=== PATIENT | female | born 1970 | race Caucasian/White ===

== ENCOUNTER 2017-07-27 16:03 | Inpatient (IN) | payer MEDICAID, OTHER ==
[~2017-07-27] VITALS: Ht 152.4 cm; Wt 112.7 kg
[2017-07-27 16:26] LABS: BASOPHILS % (AUTO) 0.2 % (0.0-2.0); HEMATOCRIT 39.3 % (36-46); HEMOGLOBIN 13.3 g/dL (12.0-16.0); LYMPHOCYTES # (AUTO) 2.1 K/uL (1.0-4.8); LYMPHOCYTES % (AUTO) 24.7 % (22.0-44.0); MEAN CORPUSCULAR HGB CONC 33.8 G/dL (31.0-37.0); MEAN CORPUSCULAR VOLUME 80 fL (80-100); MONOCYTES # (AUTO) 0.3 K/uL (0.1-1.0); NEUTROPHILS % (AUTO) 70.1 % (40.0-70.0); PLATELET COUNT (AUTO) 277 K/uL (150-450); RED BLOOD CELL COUNT(AUTO) 4.92 MIL/uL (4.00-5.20); RED CELL DISTRIBUTION WIDTH 13.6 % (11.5-14.5)
[2017-07-27 16:34] LABS: ANION GAP 11 mmol/L (8-16); CARBON DIOXIDE 25 mmol/L (22-29); CHLORIDE 105 mmol/L (98-107); CREATININE 0.89 mg/dL (0.60-1.30); GLOMERULAR FILTR. RATE CALC > 60 mL/min (>60); GLUCOSE,RANDOM 136 mg/dL (70-110); POTASSIUM 3.8 mmol/L (3.5-5.1); SODIUM SERUM 141 mmol/L (136-145); UREA NITROGEN, BLOOD 14 mg/dL (7-18)
[2017-07-27 16:40] LABS: ALANINE AMINOTRANSFERASE 64 U/L (12-78); ALBUMIN 3.6 g/dL (3.4-5.0); ALKALINE PHOSPHATASE 79 U/L (46-116); ASPARTATE AMINOTRANSFERASE 33 U/L (15-37); BILIRUBIN,TOTAL 0.2 mg/dL (0.1-1.0); TOTAL PROTEIN, SERUM 8.2 g/dL (6.4-8.2)
[2017-07-27] MEDS ORDERED: BECL10.62 IH (17:28)
[2017-07-27 18:12] LABS: AMPHET/METH SCREEN,URINE NEGATIVE (NEGATIVE); BARBITURATE SCREEN, URINE NEGATIVE (NEGATIVE); BENZODIAZEPINES SCREEN,URINE NEGATIVE (NEGATIVE); CANNABINOID SCREEN,URINE NEGATIVE (NEGATIVE); COCAINE SCREEN,URINE NEGATIVE (NEGATIVE); METHADONE SCREEN, URINE NEGATIVE (NEGATIVE); OPIATE SCREEN,URINE NEGATIVE (NEGATIVE)
[2017-07-27 18:13] LABS: PHENCYCLIDINE SCREEN,URINE NEGATIVE (NEGATIVE)
[2017-07-27 23:47] VITALS: BP 138/83
[2017-07-27 23:48] VITALS: BP 138/83
[2017-07-28] MEDS ORDERED: PNEUMOCOCCAL VACCINE POLYVALENT 0.5 ML VIAL [PPSV23] IM ONE (00:30)
[2017-07-28 00:34] VITALS: BP 127/66
[2017-07-28] MEDS: LORazepam 2 MG TABLET PO PRN ×3 (03:29→17:33)
[2017-07-28] MEDS ORDERED: ALBUTEROL SULFATE HFA 90 MCG/PUFF 8 GM INHALER IH PRN (06:15)
[2017-07-28 06:58] LABS: GLUCOMETER DEV NAME(LOC) BV3S 2; GLUCOSE,POINT OF CARE 100 MG/DL (70-110)
[2017-07-28 08:21] VITALS: BP 126/75
[2017-07-28] MEDS: SERTRALINE HCL 50 MG TABLET PO SCH (13:14)
[2017-07-28] MEDS ORDERED: IBUPROFEN 400 MG TABLET PO PRN (16:00)
[2017-07-28] MEDS ORDERED: ACETAMINOPHEN 325 MG TABLET PO PRN (16:00)
[2017-07-28 16:25] VITALS: BP 110/68
[2017-07-28] MEDS: HALOPERIDOL 5 MG TABLET PO PRN (17:33)
[2017-07-29 05:16] VITALS: BP 132/80
[2017-07-29 08:18] LABS: CHOL/HDL RATIO 2.6 (3.9-5.7)
[2017-07-29 08:44] VITALS: BP 117/64
[2017-07-29] MEDS: SERTRALINE HCL 50 MG TABLET PO SCH (09:10)
[2017-07-29] MEDS: IBUPROFEN 400 MG TABLET PO PRN ×2 (10:50→17:06)
[2017-07-29] MEDS ORDERED: CYCLOBENZAPRINE HCL 10 MG TABLET PO PRN (13:30)
[2017-07-29] MEDS ORDERED: ACETAMINOPHEN 325 MG TABLET PO PRN (13:30)
[2017-07-29 16:07] VITALS: BP 126/86
[2017-07-29 18:05] VITALS: BP 118/89
[2017-07-30 06:25] VITALS: BP 109/69
[2017-07-30] MEDS: SERTRALINE HCL 50 MG TABLET PO SCH (08:32)
[2017-07-30] MEDS: LORazepam 2 MG TABLET PO PRN ×2 (08:37→16:27)
[2017-07-30 08:40] VITALS: BP 111/75
[2017-07-30 09:08] LABS: APPEARANCE,URINE CLOUDY (CLEAR); BILIRUBIN,URINE NEGATIVE (NEGATIVE); GLUCOSE, URINE (UA) NEGATIVE (NEGATIVE); KETONES,URINE NEGATIVE (NEGATIVE); LEUKOCYTE ESTERASE ,URINE NEGATIVE (NEGATIVE); NITRATE,URINE NEGATIVE (NEGATIVE); OCCULT BLOOD,URINE NEGATIVE (NEGATIVE); PH,URINE 7.5 (5.0-8.0); PROTEIN,URINE NEGATIVE (NEGATIVE)
[2017-07-30 09:24] LABS: BACTERIA,URINE Few /HPF (None Seen); RBC,URINE None Seen /HPF (0-2); SQUAMOUS EPITHELIAL CELL,UR Many /LPF (None Seen); WBC,URINE 0-2 /HPF (0-5)
[2017-07-30] MEDS: RisperiDONE 0.5 MG TABLET PO SCH ×2 (12:36→20:33)
[2017-07-30 16:17] VITALS: BP 110/71
[2017-07-30] MEDS: HALOPERIDOL 5 MG TABLET PO PRN (16:27)
[2017-07-30] MEDS: ZOLPIDEM TARTRATE 10 MG TABLET PO PRN (20:33)
[2017-07-31] MEDS: RisperiDONE 0.5 MG TABLET PO SCH ×2 (08:09→21:14)
[2017-07-31] MEDS: HALOPERIDOL 5 MG TABLET PO PRN (08:10)
[2017-07-31] MEDS: SERTRALINE HCL 100 MG TABLET PO SCH (08:10)
[2017-07-31] MEDS: LORazepam 2 MG TABLET PO PRN (08:10)
[2017-07-31 08:28] VITALS: BP 112/71
[2017-07-31 16:30] VITALS: BP 128/80
[2017-07-31] MEDS: ZOLPIDEM TARTRATE 10 MG TABLET PO PRN (23:39)
[2017-08-01 03:52] VITALS: BP 120/77
[2017-08-01 08:23] VITALS: BP 121/81
[2017-08-01] MEDS: SERTRALINE HCL 100 MG TABLET PO SCH (08:56)
[2017-08-01] MEDS: RisperiDONE 0.5 MG TABLET PO SCH ×2 (08:57→20:27)
[2017-08-01 16:00] VITALS: BP 125/86
[2017-08-01] MEDS: LORazepam 2 MG TABLET PO PRN (21:37)
[2017-08-02 07:03] VITALS: BP 116/65
[2017-08-02] MEDS: RisperiDONE 0.5 MG TABLET PO SCH ×2 (08:11→20:43)
[2017-08-02] MEDS: SERTRALINE HCL 100 MG TABLET PO SCH (08:11)
[2017-08-02 16:18] VITALS: BP 139/94
[2017-08-02] MEDS: LORazepam 2 MG TABLET PO PRN (17:08)
[2017-08-02] MEDS: ZOLPIDEM TARTRATE 10 MG TABLET PO PRN (20:43)
[2017-08-03 03:23] VITALS: BP 131/84
[2017-08-03 08:19] VITALS: BP 121/66
[2017-08-03] MEDS: SERTRALINE HCL 100 MG TABLET PO SCH (08:33)
[2017-08-03] MEDS: RisperiDONE 0.5 MG TABLET PO SCH ×2 (08:33→20:46)
[2017-08-03] MEDS: LORazepam 2 MG TABLET PO PRN ×2 (08:33→16:47)
[2017-08-03] MEDS: HALOPERIDOL 5 MG TABLET PO PRN ×2 (09:27→16:47)
[2017-08-03] MEDS: MAGNESIUM HYDROXIDE SUSPENSION 30 ML UDCUP PO PRN (09:27)
[2017-08-03 16:53] VITALS: BP 126/79
[2017-08-03] MEDS: ZOLPIDEM TARTRATE 10 MG TABLET PO PRN (20:46)
[2017-08-04 06:39] VITALS: BP 110/70
[2017-08-04] MEDS: SERTRALINE HCL 100 MG TABLET PO SCH (08:02)
[2017-08-04] MEDS: RisperiDONE 0.5 MG TABLET PO SCH (08:02)
[2017-08-04] MEDS: MAGNESIUM HYDROXIDE SUSPENSION 30 ML UDCUP PO PRN (09:13)
[2017-08-04] MEDS: LORazepam 2 MG TABLET PO PRN (09:15)
[2017-08-04 13:17] VITALS: BP 114/81
[2017-08-04 16:21] VITALS: BP 137/81
[2017-08-04] MEDS: ZOLPIDEM TARTRATE 10 MG TABLET PO PRN (21:09)
[2017-08-04] MEDS: RisperiDONE 1 MG TABLET PO SCH (21:09)
[2017-08-04] MEDS ORDERED: MAGNESIUM CITRATE 300 ML ORAL SOLUTION PO PRN (22:30)
[2017-08-04] MEDS ORDERED: IBUPROFEN 400 MG TABLET PO PRN (22:45)
[2017-08-05 06:51] VITALS: BP 124/83
[2017-08-05] MEDS: RisperiDONE 1 MG TABLET PO SCH (08:07)
[2017-08-05] MEDS: SERTRALINE HCL 100 MG TABLET PO SCH (08:07)
[2017-08-05] MEDS: LORazepam 2 MG TABLET PO PRN (08:07)
[2017-08-05 08:32] VITALS: BP 121/78
[2017-08-05] MEDS ORDERED: SERT100T12 PO (11:19)
[2017-08-05] MEDS ORDERED: RISP1 PO (11:19)
== END 2017-08-05 12:30 | disposition home or self-care (01) | DRG 751 ==
LOC: EMS 16:05 → B3A 20:56
DX: F33.3 Major depressive disorder, recurrent, severe with psychotic symptoms (principal); F10.231 Alcohol dependence with withdrawal delirium; R45.851 Suicidal ideations; G47.00 Insomnia, unspecified; G56.00 Carpal tunnel syndrome, unspecified upper limb; G89.29 Other chronic pain; H91.91 Unspecified hearing loss, right ear; J45.909 Unspecified asthma, uncomplicated; Z79.899 Other long term (current) drug therapy
CPT/HCPCS: 90471; 99285; G0480; J3535